=== PATIENT | female | born 2000 | race Caucasian/White ===

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

== ENCOUNTER 2019-04-08 21:57 | Emergency (ER) | payer MEDICAID ==
[2019-04-08 23:21] LABS: BASOPHILS # (AUTO) 0.1 10^3/uL (0.0-0.1); BASOPHILS % (AUTO) 0.4 %; RED CELL DISTRIBUTION WIDTH 13.2 % (12.0-15.0)
[2019-04-08 23:23] LABS: NEUTROPHILS # (AUTO) 8.4 10^3/uL (1.5-6.6)
[2019-04-08 23:24] LABS: HGB - HEMOGLOBIN 14.5 g/dL (12.0-16.0); RED BLOOD COUNT 4.98 10^6/uL (4.20-5.40); WHITE BLOOD COUNT 13.4 x10^3/uL (4.8-10.8)
[2019-04-08 23:25] LABS: EOSINOPHILS % (AUTO) 7.5 %; LYMPHOCYTES % (AUTO) 22.3 %; MEAN CORPUSCULAR HEMOGLOBIN 29.1 pg (27.0-31.0); MEAN CORPUSCULAR HGB CONC 33.6 g/dL (32.0-36.0); MEAN CORPUSCULAR VOLUME 86.5 fL (81.0-99.0); MEAN PLATELET VOLUME 9.8 fL (7.9-10.8); MONOCYTES # (AUTO) 0.9 10^3/uL (0.0-1.0); MONOCYTES % (AUTO) 6.5 %; NEUTROPHILS % (AUTO) 62.5 %; PLT - PLATELET COUNT 298 10^3/uL (130-450)
[2019-04-08 23:33] LABS: ALBUMIN 4.1 g/dL (3.2-5.5); ALBUMIN/GLOBULIN RATIO 1.1 (1.0-2.2); CALCIUM 8.9 mg/dL (8.5-10.3); CREATININE 0.5 mg/dL (0.4-1.0); CRP HIGH SENSITIVITY 10.9 mg/L; TOTAL PROTEIN 7.9 g/dL (6.7-8.2)
[2019-04-08 23:43] LABS: HCG,QUALITATIVE BLOOD NEGATIVE
--- NOTE | 2019-04-09 00:39 | XRAY Report ---
Reason: PAIN Procedure Date: 04/09/2019 Accession Number: [id number] / [id number] Procedure: XR - Pelvis 1 View CPT Code: Final Report FULL RESULT: EXAM: PELVIS RADIOGRAPHY EXAM DATE: 04/09/2019 12:25 AM. CLINICAL HISTORY: PAIN. COMPARISON: None. TECHNIQUE: 1 view. FINDINGS: Bones: Normal. No fracture or bone lesion. Joints: The visualized hip, pubis symphysis, and sacroiliac joints are preserved. No subluxation. Soft Tissues: Normal. No soft tissue swelling. IMPRESSION: Normal pelvis radiography. RADIA
[2019-04-09] MEDS ORDERED: KETOROLAC 60 MG/2 ML VIAL IM STA (00:45)
--- NOTE | 2019-04-09 00:50 | XRAY Report ---
Reason: pain Procedure Date: 04/09/2019 Accession Number: [id number] / [id number] Procedure: XR - Femurs 2V BILAT CPT Code: Final Report FULL RESULT: EXAM: EXAM DATE: 04/09/2019 12:25 AM CLINICAL HISTORY: Pain. COMPARISON: None. TECHNIQUE: 9 views of the left femur and hip and right femur and hip. Views FINDINGS: The femoral notch symmetric and unremarkable. There are no destructive lesions. There are no periosteal reactions. The soft tissues are symmetric and unremarkable. The hips are symmetric. No significant joint space narrowing. IMPRESSION: Negative x-rays bilateral femora. RADIA
--- NOTE | 2019-04-09 01:38 | ED Physician Documentation ---
History of Present Illness - Stated complaint Stated Complaint: BILAT THIGH PX - Chief complaint Chief Complaint: Ext Problem - History obtained from History obtained from: Patient - History of Present Illness Timing: How many days ago (4) Quality: SHARP Radiates to: NONE Improved by: REST Worsened by: WALKING - Additonal information Additional information: 18 YEAR OLD FEMALE, OTHERWISE HEALTHY, PRESENTS TO THE EMERGENCY DEPARTMENT BECAUSE OF PAIN TO HER THIGHS. SHE REPORTED THAT SHE STARTED NOTICING PAIN TO HER RIGHT UPPER LEG 4 DAYS AGO. THE PAIN WAS SHARP IN NATURE WITHOUT RADIATION. SHE REPORTED THAT THE PAIN ON HER RIGHT THIGH HAS SINCE RESOLVED AND NOW SHE HAS PAIN TO HER LEFT THIGH THAT FELT DEEP TO THE BONE. SHE DENIES ANY RECENT TRAUMA, RECENT TRAVELS, LEG SWELLING, CALF PAIN OR SWELLING OR REDNESS. SHE DENIES PELVIC OR ABDOMINAL PAIN. SHE DENIES NUMBNESS OR TINGLING TO HER LOWER EXTREMITIES. SHE DENIES SIMILAR PAIN LIKE THIS IN THE PAST. Review of Systems Constitutional: denies: Fever, Chills Eyes: denies: Discharge Ears: denies: Drainage/discharge Nose: denies: Rhinorrhea / runny nose Throat: denies: Sore throat Cardiac: denies: Chest pain / pressure, Palpitations Respiratory: denies: Dyspnea, Cough GI: denies: Abdominal Pain, Nausea, Vomiting Skin: denies: Rash, Lesions, Abrasion (s) Musculoskeletal: reports: Extremity pain. 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: None : Kidney stones Psych: Depression, Anxiety, Panic attacks, Eating disorder Musculoskeletal: Other - Past Surgical History Past Surgical History: No - Present Medications Home Medications: Ambulatory Orders Medication Instructions Recorded Confirmed Ciprofloxacin HCl [Cipro] 500 mg PO BID #14 tablet 09/17/17 - Allergies Allergies/Adverse Reactions: Allergies Allergy/AdvReac Type Severity Reaction Status Date / Time Penicillins Allergy Hives Verified 09/17/17 10:37 - Social History Does the pt smoke?: No Smoking Status: Never smoker Does the pt drink ETOH?: No Does the pt have substance abuse?: No - Immunizations Immunizations are current?: Yes - POLST Patient has POLST: No PD ED PE NORMAL - Vitals Vital signs reviewed: Yes - General General: Alert and oriented X 3, No acute distress, Well developed/nourished - HEENT HEENT: Atraumatic, EOMI, Moist mucous membranes - Neck Neck: Supple, no meningeal sign - Cardiac Cardiac: RRR - Respiratory Respiratory: No respiratory distress - Abdomen Abdomen: Normal bowel sounds, Soft - Derm Derm: Normal color, Warm and dry - Extremities Extremities: No deformity, No tenderness to palpate, Normal ROM s pain, No edema, No calf tenderness / cord, Other (RIGHT AND LEFT POSTERIOR TIBIALIS AND DORSALIS PEDIS ARE 2+. CAP REFILL WAS LESS THAN 2 SECONDS.) - Neuro Neuro: Alert and oriented X 3, treasury director 2-12 intact Eye Opening: Spontaneous Motor: Obeys Commands Verbal: Oriented GCS Score: 15 Results - Vitals Vitals: Oxygen O2 Source Room air - Labs Labs: Laboratory Tests 04/08/19 04/08/19 04/08/19 23:15 23:15 23:15 WBC 13.4 H RBC 4.98 Hgb 14.5 Hct 43.1 MCV 86.5 MCH 29.1 MCHC 33.6 RDW 13.2 Plt Count 298 MPV 9.8 Neut # (Auto) 8.4 H Lymph # (Auto) 3.0 [place] # (Auto) 0.9 Eos # (Auto) 1.0 H Baso # (Auto) 0.1 Absolute Nucleated RBC 0.00 Nucleated RBC % 0.0 ESR 13 Sodium 135 Potassium 3.7 Chloride 104 Carbon Dioxide 23 Anion Gap 8.0 BUN 9 Creatinine 0.5 Estimated GFR (MDRD) 159 Glucose 88 Calcium 8.9 Total Bilirubin 1.0 AST 23 ALT 37 Alkaline Phosphatase 62 C-React Prot High Sens 10.9 Total Protein 7.9 Albumin 4.1 Globulin 3.8 Albumin/Globulin Ratio 1.1 Serum HCG, Qual 04/08/19 23:15 WBC RBC Hgb Hct MCV MCH MCHC RDW Plt Count MPV Neut # (Auto) Lymph # (Auto) [place] # (Auto) Eos # (Auto) Baso # (Auto) Absolute Nucleated RBC Nucleated RBC % ESR Sodium Potassium Chloride Carbon Dioxide Anion Gap BUN Creatinine Estimated GFR (MDRD) Glucose Calcium Total Bilirubin AST ALT Alkaline Phosphatase C-React Prot High Sens Total Protein Albumin Globulin Albumin/Globulin Ratio Serum HCG, Qual NEGATIVE PD MEDICAL DECISION MAKING - ED course Complexity details: reviewed results, re-evaluated patient, considered differential, d/w patient ED course: 18 YEAR OLD FEMALE PRESENTS TO THE EMERGENCY DEPARTMENT WITH RIGHT THIGH PAIN 4 DAYS. IT HAS SINCE RESOLVED AND NOW WITH LEFT THIGH PAIN. N HX OF TRAUMA. NO REDNESS, SWELLING NOTED ON EXAM. NO CALF TENDERNESS WITH PALPATION. DISTAL PULSES WERE 2+ BILATERALLY AND THEY WERE EQUAL. NORMAL SKIN COLOR WITHOUT PA LLOR OR CYANOSIS. XRAYS DID NOT SHOW ACUTE BONY ABNORMALITIES OR AVASCULAR NECROSIS OR SCFE. LABS WERE UNREMARKABLE. CLINICAL CONCERN FOR DVT WAS LOW. THE ETIOLOGY OF HER SYMPTOMS WERE NOT CLEAR. I RECOMMENDED OUTPATIENT FOLLOW UP WITH PCP IN 3-5 DAYS. STRICT RETURN INSTRUCTIONS WERE GIVEN. PATIENT WAS DISCHARGED IN STABLE CONDITION. Departure - Departure Disposition: 01 Home, Self Care Clinical Impression: Pain in extremity Condition: Stable Instructions: ED Acute Pain [facility] Follow-Up: [facility] [Provider Group] - Within 1 week Comments: PLEASE USE IBUPROFEN OR TYLENOL NEEDED FOR PAIN, PLEASE FOLLOW UP WITH A REGULAR DOCTOR IN 1 WEEK. PLEASE RETURN TO THE EMERGENCY DEPARTMENT IF YOU EXPERIENCE A FEVER OF 100.4 OR GREATER, LOW BACK PAIN, DIFFICULTY WITH URINATION OR INCONTINENCE OF URINE OR BOWEL OR ANY NEW OR CONCERNING SYMPTOMS. Discharge Date/Time: 04/09/19 02:19
[2019-04-09 02:20] VITALS: BP 124/78
== END 2019-04-09 02:19 | disposition home or self-care (01) ==
LOC: ED 21:57
DX: M79.652 Pain in left thigh (principal); M79.651 Pain in right thigh
CPT/HCPCS: 36415; 72170; 73552; 80053; 84703; 85025; 85651; 86141; 96372; 99284